=== PATIENT | male | born 1985 | race Caucasian/White ===

== ENCOUNTER 2021-07-20 09:13 | Outpatient (CLI) | payer BC | END 2021-07-20 09:14 | disposition home or self-care (01) | LOC: CSHULT 09:13 | PROVIDERS: ATTEND Family Medicine | DX: R31.9 Hematuria, unspecified (principal) | CPT/HCPCS: 76770 ==

== ENCOUNTER 2023-05-25 10:48 | Outpatient (CLI) | payer BC | END 2023-05-25 10:49 | disposition home or self-care (01) | LOC: CSHRAD 10:48 | PROVIDERS: ATTEND Family Medicine | DX: Z82.49 Family history of ischemic heart disease and other diseases of the circulatory system (principal); R07.89 Other chest pain | CPT/HCPCS: 75571 ==

== ENCOUNTER 2025-06-09 08:48 | Outpatient (CLI) | payer BC | END 2025-06-09 08:49 | disposition home or self-care (01) | LOC: CSHSLEEP 08:48 | PROVIDERS: ATTEND Family Medicine | DX: G47.33 Obstructive sleep apnea (adult) (pediatric) (principal); R53.83 Other fatigue; E66.9 Obesity, unspecified; Z68.31 Body mass index [BMI] 31.0-31.9, adult; R06.83 Snoring | CPT/HCPCS: 95800 ==